=== PATIENT | male | born 1955 | race Caucasian/White ===

== ENCOUNTER 2017-09-24 21:22 | Inpatient (IN) ==
[2017-09-24] MEDS ORDERED: IOPAMIDOL 100 ML BOTTLE IV ONE (21:23)
[2017-09-24] MEDS ORDERED: 0.9 % SODIUM CHLORIDE 1,000 ML IV ONE (21:39)
[2017-09-24] MEDS ORDERED: 0.9 % SODIUM CHLORIDE 2,000 ML IV ONE (22:00)
[2017-09-24] MEDS ORDERED: KETOROLAC 30 MG/ML VIAL IV ONE (22:00)
[2017-09-24] MEDS ORDERED: ONDANSETRON 4 MG/2 ML VIAL IV ONE (22:00)
[2017-09-24 22:35] LABS: Basophils # (Auto) 0 K/mcL (0.0-0.3); Basophils % (Auto) 0.5 % (0.0-2.0); Eosinophils # (Auto) 0.1 K/mcL (0.0-0.7); Eosinophils % (Auto) 0.9 % (0.0-7.0); Granulocytes % (Auto) 76.7 % (38.0-78.0); Lymphocytes # (Auto) 1.6 K/mcL (1.5-4.8); Lymphocytes % (Auto) 16.3 % (15.5-49.0); Mean Cell Volume 85.6 fL (80.0-100.0); Mean Corpuscular HGB Conc 33.6 g/dL (31.0-36.0); Mean Corpuscular Hemoglobin 28.8 pg (26.0-34.0); Monocytes # (Auto) 0.6 K/mcL (0.1-0.9); Monocytes % (Auto) 5.6 % (1.0-12.0); Platelet Count 238 K/mcL (140-440); RBC 5.37 M/mcL (4.50-5.90); Red Cell Distribution Width 12.6 % (11.5-14.5)
[2017-09-24 22:52] LABS: Amylase 461 U/L (28-100)
[2017-09-24 22:52] LABS: ALT/SGPT 50 U/l (0-40); Albumin 4.4 gm/dL (3.2-5.2); Albumin/Globulin Ratio 1.8 (1.0-2.3); Alkaline Phosphatase 50 U/L (39-117); Blood Urea Nitrogen 23 mg/dl (8-23)
[2017-09-24 22:57] LABS: Lipase 1135 U/L (7-60)
[2017-09-24 23:09] LABS: Appearance,Urine CLEAR; Bacteria,Urine 0 /hpf (0); Bilirubin,Urine NEG (NEG); Color,Urine YELLOW; Glucose,Urine (UA) NEGATIVE (NEG); Leukocyte Esterase,Urine NEG /uL (NEG); Mucus,Urine MOD /hpf (0); Protein,Urine 100 mg/dL (NEG); Specific Gravity,Urine 1.032 (1.000-1.035); Urine Blood NEG mg/dL (<0.03); Urine RBC 1 /hpf (0-1); Urine Squamous Epithelial Cell < 1 /hpf (0-4); Urine WBC 4 /hpf (0-4); Urobilinogen,Urine NEG (NEG)
--- NOTE | 2017-09-25 00:10 | Emergency Department Note ---
Abdominal Pain HPI - General Chief Complaint: Abdominal Pain Stated Complaint: abdominal pain Time Seen by Provider: 09/24/17 21:41 Source: patient Mode of arrival: ambulatory Limitations: no limitations - History of Present Illness HPI Narrative: 62-year-old male comes in for stomachache since noon. Pain is worse at the left lower quadrant but also in the left upper quadrant. Increasing severity such that it hurts to take a deep breath. Not taking any medicine for this. No fever chills vomiting or diarrhea. But he does have some nausea and decreased appetite. He is urinating well. Normal bowel movements. He has not drank alcohol in over 2 years. - Related Data Home Medications Medication Instructions Recorded Confirmed Omeprazole [Prilosec] 20 mg PO DAILY 03/13/15 09/24/17 Allergies Allergy/AdvReac Type Severity Reaction Status Date / Time No Known Drug Allergies Allergy Verified 09/24/17 21:25 Review of Systems All systems ED: reviewed and negative except as stated. Abdominal Pain PMH - Past Medical History Attestation: Yes: The following information was validated with the patient. Medical history: Reports: GERD Surgical history ED: Reports: orthopedic, other (Foot surgery, cervical spine surgery, shoulder surgery) - Social History Smoking status: Former smoker Alcohol use: Reports: None Physical Exam No acute distress however holding very still so it does not move his belly. Normocephalic atraumatic. Conjunctive are clear sclerae nonicteric. No nasal discharge or congestion. Oropharynx is pink and moist. Posterior pharynx is clear. Neck is supple without lymphadenopathy or thyromegaly. Heart is regular rate and rhythm no murmur appreciated. Lungs are clear to auscultation bilaterally without wheezes rales rhonchi or respiratory distress. Abdomen is soft nondistended not rigid. However very tender but especially so on the left. Any movement exacerbates. Normoactive bowel sounds. No pedal edema. + 2 radial pulse. Alert and oriented Limitations: no limitations Course Vital Signs Temperature 96.7 F L 09/24/17 21:23 Pulse Rate 76 09/24/17 21:23 Respiratory Rate 22 09/24/17 21:23 Blood Pressure 136/89 09/24/17 21:23 Pulse Oximetry (%) 99 09/24/17 21:23 Temperature 99.6 F H 09/25/17 07:26 Pulse Rate 78 09/25/17 04:00 Respiratory Rate 16 09/25/17 07:26 Blood Pressure 122/75 09/25/17 07:26 Pulse Oximetry (%) 93 09/25/17 07:26 Abdominal Pain - Lab Data Lab results reviewed: Yes I reviewed the patient's lab results. Result diagrams: 09/24/17 21:51 09/24/17 21:51 Lab Results 09/24/17 09/24/17 09/24/17 Range/Units 21:51 21:51 22:00 WBC 9.9 (4.5-11.0) K/mcL RBC 5.37 (4.50-5.90) M/mcL Hgb 15.5 (13.5-16.5) g/dL Hct 46.0 (41.0-55.0) % POC Hct (41.0-55.0) % MCV 85.6 (80.0-100.0) fL MCH 28.8 (26.0-34.0) pg MCHC 33.6 (31.0-36.0) g/dL RDW 12.6 (11.5-14.5) % Plt Count 238 (140-440) K/mcL MPV 7.9 (7.4-10.4) fL Gran % 76.7 (38.0-78.0) % Lymph % (Auto) 16.3 (15.5-49.0) % [place] % (Auto) 5.6 (1.0-12.0) % Eos % (Auto) 0.9 (0.0-7.0) % Baso % (Auto) 0.5 (0.0-2.0) % Gran # 7.6 (1.8-8.0) K/mcL Lymph # (Auto) 1.6 (1.5-4.8) K/mcL [place] # (Auto) 0.6 (0.1-0.9) K/mcL Eos # (Auto) 0.1 (0.0-0.7) K/mcL Baso # (Auto) 0 (0.0-0.3) K/mcL VBG Lactic Acid (0.5-2.2) mmol/L POC Sodium (133-145) mmol/L Sodium 139 (133-145) mmol/L POC Potassium (3.3-5.1) mmol/L Potassium 3.9 (3.3-5.1) mmol/L POC Chloride (96-108) mmol/L Chloride 101 (96-108) mmol/L Carbon Dioxide 27 (22-30) mmol/L POC Total CO2 (22-30) mmol/L Anion Gap 11.0 (8-16) POC BUN (8-23) mg/dl BUN 23 (8-23) mg/dl Creatinine 1.0 (0.7-1.2) mg/dl POC Creatinine (0.7-1.2) mg/dl GFR Calculation 80 Glucose 105 (70-105) mg/dL POC Glucose (70-105) mg/dL Calcium 9.3 (8.6-10.4) mg/dl POC WB Ioniz Calcium (1.16-1.32) mmol/L Total Bilirubin 0.4 (0.0-1.0) mg/dL AST 28 (0-37) U/l ALT 50 H (0-40) U/l Alkaline Phosphatase 50 (39-117) U/L Total Protein 6.9 (5.9-8.4) gm/dL Albumin 4.4 (3.2-5.2) gm/dL Globulin 2.5 (2.2-3.7) gm/dL Albumin/Globulin Ratio 1.8 (1.0-2.3) Amylase (28-100) U/L Lipase 1135 H (7-60) U/L Urine Color Yellow Urine Appearance Clear Urine pH 5.0 (5.0-9.0) Ur Specific [place] 1.032 (1.000-1.035) Urine Protein 100 A (NEG) mg/dL Urine Glucose (UA) Negative (NEG) mg/dL Urine Ketones Neg (NEG) mg/dL Urine Occult Blood Neg (<0.03) mg/dL Urine Nitrate Neg (NEG) Urine Bilirubin Neg (NEG) mg/dL Urine Urobilinogen Neg (NEG) mg/dL Ur Leukocyte Esterase Neg (NEG) /uL Urine RBC 1 (0-1) /hpf Urine WBC 4 (0-4) /hpf Ur Squamous Epith Cells < 1 (0-4) /hpf Urine Bacteria 0 (0) /hpf Urine Mucus Mod (0) /hpf Ur Culture Indicated? No 06/22/18 06/22/18 Range/Units 22:11 22:11 WBC (4.5-11.0) K/mcL RBC (4.50-5.90) M/mcL Hgb (13.5-16.5) g/dL Hct (41.0-55.0) % POC Hct 40.0 L (41.0-55.0) % MCV (80.0-100.0) fL MCH (26.0-34.0) pg MCHC (31.0-36.0) g/dL RDW (11.5-14.5) % Plt Count (140-440) K/mcL MPV (7.4-10.4) fL Gran % (38.0-78.0) % Lymph % (Auto) (15.5-49.0) % [place] % (Auto) (1.0-12.0) % Eos % (Auto) (0.0-7.0) % Baso % (Auto) (0.0-2.0) % Gran # (1.8-8.0) K/mcL Lymph # (Auto) (1.5-4.8) K/mcL [place] # (Auto) (0.1-0.9) K/mcL Eos # (Auto) (0.0-0.7) K/mcL Baso # (Auto) (0.0-0.3) K/mcL VBG Lactic Acid 0.7 (0.5-2.2) mmol/L POC Sodium 142 (133-145) mmol/L Sodium (133-145) mmol/L POC Potassium 3.7 (3.3-5.1) mmol/L Potassium (3.3-5.1) mmol/L POC Chloride 103 (96-108) mmol/L Chloride (96-108) mmol/L Carbon Dioxide (22-30) mmol/L POC Total CO2 25 (22-30) mmol/L Anion Gap (8-16) POC BUN 23 (8-23) mg/dl BUN (8-23) mg/dl Creatinine (0.7-1.2) mg/dl POC Creatinine 1.0 (0.7-1.2) mg/dl GFR Calculation Glucose (70-105) mg/dL POC Glucose 100 (70-105) mg/dL Calcium (8.6-10.4) mg/dl POC WB Ioniz Calcium 1.13 L (1.16-1.32) mmol/L Total Bilirubin (0.0-1.0) mg/dL AST (0-37) U/l ALT (0-40) U/l Alkaline Phosphatase (39-117) U/L Total Protein (5.9-8.4) gm/dL Albumin (3.2-5.2) gm/dL Globulin (2.2-3.7) gm/dL Albumin/Globulin Ratio (1.0-2.3) Amylase 461 H (28-100) U/L Lipase (7-60) U/L Urine Color Urine Appearance Urine pH (5.0-9.0) Ur Specific [place] (1.000-1.035) Urine Protein (NEG) mg/dL Urine Glucose (UA) (NEG) mg/dL Urine Ketones (NEG) mg/dL Urine Occult Blood (<0.03) mg/dL Urine Nitrate (NEG) Urine Bilirubin (NEG) mg/dL Urine Urobilinogen (NEG) mg/dL Ur Leukocyte Esterase (NEG) /uL Urine RBC (0-1) /hpf Urine WBC (0-4) /hpf Ur Squamous Epith Cells (0-4) /hpf Urine Bacteria (0) /hpf Urine Mucus (0) /hpf Ur Culture Indicated? - Radiology Data Radiology results reviewed: Yes I reviewed the patient's radiology results. Initial [facility] CT scan read shows no evidence of pancreatitis but Dr. Dowell's over read shows mild peripancreatic fat stranding. No pseudocyst or abscess seen Disposition Pt seen by [facility] [employer]/PA only: No Clinical Impression: Pancreatitis Qualifiers: Chronicity: acute Pancreatitis type: unspecified pancreatitis type Acute pancreatitis complication: no infection or necrosis Qualified Code(s): K85.90 - Acute pancreatitis without necrosis or infection, unspecified Summary: Patient was given Toradol morphine Zofran and normal saline while working up belly pain Significant elevation in lipase/amylase consistent with pancreatitis on exam and history CT scan does not show any complications. Discussed case with Dr. Caceres who agreed to accept the patient for hospitalist service for acute pancreatitis unclear etiology. It is noted the patient no longer drinks alcohol and is not on any medicines that could cause pancreatitis. I wrote holding orders/ transition orders per Dr. Caceres's request Disposition: Xfer As Inpt ([facility]) Condition: Fair
[2017-09-25] MEDS ORDERED: ONDANSETRON 4 MG/2 ML VIAL IV PRN (00:12)
[2017-09-25] MEDS ORDERED: oxyCODONE/APAP 5/325MG TABLET PO PRN (00:12)
[2017-09-25] MEDS: 0.9 % SODIUM CHLORIDE 1,000 ML IV SCH ×5 (01:15→21:46)
[2017-09-25] MEDS: OMEPRAZOLE 20 MG CAPSULE PO SCH ×2 (07:32→18:04)
--- NOTE | 2017-09-25 07:55 | Cat Scan Report ---
CLINICAL INFORMATION: Left lower quadrant pain. Prior history of kidney disease COMPARISON: 06/06/2010 TECHNIQUE: Following enteric contrast, 80 cc of Isovue-300 were injected intravenously, and 60 seconds later, 0.625 mm helical slices were obtained from the mid heart through the subtrochanteric regions. Following reconstruction, 2.5 mm sagittal, coronal and axial reformatted images were processed and reviewed at bone, lung and soft tissue windows. Five minutes later, 0.625 mm helical slices were obtained from the mid heart through the kidneys and viewed at soft tissue windows.The exam was performed using radiation dose optimization techniques including, but not limited to, automated exposure control, adjustment of the mA and/or kV according to patient size and use of iterative reconstruction technique. FINDINGS: Lung bases show no abnormality - no effusion. The heart is normal in size configuration with small amounts of atherosclerotic calcific plaque seen within the coronary arteries. Images through the abdomen show moderate fatty change within the liver which show slight progression. No focal hepatic lesion. The gallbladder and bile ducts, spleen and aorta, including aortic branches, are normal in size, configuration and attenuation without focal lesion. Mild bulbous enlargement of the pancreatic tail is unchanged from the comparison study over seven years ago. Minor stranding in the peripancreatic fat is unchanged. There is no ascites on today's study. Both kidneys are normal and symmetric in size and position: The right is 12.1 x 4.4 cm and the left is 12 x 4.4 cm. Prominent lobulation in both kidneys seen - as before. There are no focal renal lesions. The upper collecting systems, ureters and urinary bladder are normal. Images through the pelvis show prostate and seminal vesicles to be unremarkable. There are multiple sigmoid diverticuli, but no CT evidence of diverticulitis. A 14 mm periampullary diverticula projects in the medial wall the descending small bowel - stable. The remaining small bowel, large bowel, appendix and stomach are normal. Bone windows show moderate sized regions of groundglass surrounded by well-defined sclerotic serpiginous borders in both superior femoral heads - larger on the left. These are new from the previous study and are highly suggestive of avascular necrosis. There is partial ankylosis across the anterior portion the SI joints which is stable radiographically. The remainder of the SI joints are unremarkable. No other osseous normality. IMPRESSION: 1. Sigmoid diverticulosis, but no CT evidence for diverticulitis. Mild diverticulitis may be CT occult. No other potential cause identified for left lower quadrant pain. 2. 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 Please correlate with chronic hip pain and also risk factors for avascular necrosis 3. Both kidneys, upper collecting systems, ureters and urinary bladder are unremarkable. Prior history of renal disease is acknowledged. 4. Mild bulbous configuration of the pancreatic tail is unchanged from the previous study and, thus, presumably either congenital or stigmata of remote inflammation. Minor stranding in the adjacent peripancreatic fat is supportive of remote inflammation 5. 14 mm periampullary diverticulum arising from the descending duodenum - stable and likely insignificant Interpreted and Authenticated by: Clay Dowell 09/25/17
[2017-09-25] MEDS ORDERED: MAGNESIUM SULFATE 2 GM/50 ML BAG IV PRN (09:00)
[2017-09-25] MEDS ORDERED: ACETAMINOPHEN 325 MG TABLET PO PRN (09:00)
--- NOTE | 2017-09-25 10:17 | Internal Med History&Physical ---
Medical - H&P: HPI Patient information: Note initiated : 09/25/17 at 10:15 am Service Date, if different from initiated Date: [] Patient: Jamal Riojas a 62 y/o M admitted on 09/25/17 for abdominal pain. Chief Complaint: [] Chief complaint: abdominal pain History of present illness: Mr. Riojas is a 62 year old M with a history of nephrotic syndrome in remission who presents with roughly 36 hours with onset of progressive abd discomfort. Patient's symptoms started late as a Dull ache. Over the ensuing 24 hours symptoms progressed to 8 out of 10-10 out of 10 sharp left upper abdominal pain with associated nausea but no vomiting. Patient denies associated fever diarrhea bloody stool. She denies any radiation to the shoulder or associated shortness of breath or chills or sweats. Subsequently came to the ER where initial workup was significant for elevated lipase over 1100 along with simple pancreatitis on abdominal CT. Patient denies recent [id number] herbal supplements or new medications. He denies alcoholism or prior similar episodes or history of gallstones. He was started on IV crystalloids and morphine, hospitalist service was consulted for admission. At the time of evaluation patient is in significant pain. He is able to provide answers to most of the questions. He denies weight loss including her swelling, prior abdominal surgeries. He denies chest pain shortness of breath. Review of systems 10 point review of systems performed and is negative except for what is discussed above Medical - H&P: PMH Medical history: Nephrotic syndrome in remission managed by Dr. Galvez nephrology Family history: reviewed and not pertinent Pertinent family history: Nonsignificant Social history: No history of smoking or alcoholism Patient has 3 kids-2 lives in [place] one lives locally is a nurse Full code Smoking status: Never smoker Drug use: none Medical - H&P: Meds Home Medications Medication Instructions Recorded Confirmed Type Omeprazole [Prilosec] 20 mg PO DAILY 03/13/15 09/24/17 History Allergies Allergy/AdvReac Type Severity Reaction Status Date / Time No Known Drug Allergies Allergy Verified 09/24/17 21:25 Medical - H&P: Exam - Constitutional Vitals: Temp Pulse Resp BP Pulse Ox 99.6 F H 78 16 122/75 93 09/25/17 07:26 09/25/17 04:00 09/25/17 07:26 09/25/17 07:26 09/25/17 07:26 General appearance: no acute distress Exam: Minimally distressed and anxious eye movements symmetric Oral cavity dry no eardischarge Head normocephalic Neck no lymphadenopathy S1 and S2 regular rhythm Diminished breath sounds bases Abdomen soft, hypoactive bowel sounds Lower extremity no cyanosis clubbing joint swelling or erythema Skin no suspicious lesion Psych anxious but cooperative Neuro nonfocal Medical - H&P: Reslt - Labs CBC & Chem 7: 09/27/17 03:59 09/27/17 03:59 Labs: Short CBC 09/24/17 Range/Units 21:51 WBC 9.9 (4.5-11.0) K/mcL Hgb 15.5 (13.5-16.5) g/dL Hct 46.0 (41.0-55.0) % Plt Count 238 (140-440) K/mcL BMP 09/24/17 21:51 Sodium 139 Potassium 3.9 Chloride 101 Carbon Dioxide 27 BUN 23 Creatinine 1.0 Glucose 105 Calcium 9.3 Liver Function 09/24/17 Range/Units 21:51 Total Bilirubin 0.4 (0.0-1.0) mg/dL AST 28 (0-37) U/l ALT 50 H (0-40) U/l Alkaline Phosphatase 50 (39-117) U/L Albumin 4.4 (3.2-5.2) gm/dL Urine 09/24/17 Range/Units 22:00 Urine Color Yellow Urine Appearance Clear Urine pH 5.0 (5.0-9.0) Ur Specific [place] 1.032 (1.000-1.035) Urine Protein 100 A (NEG) mg/dL Urine Glucose (UA) Negative (NEG) mg/dL Medical - H&P: A/P (1) Acute pancreatitis Current visit: Yes Status: Acute * Acute pancreatitis-lipase over 1100- continue conservative management per protocol with aggressive crystalloids NPO pain management. Low [place]'s and [place] score on admit. CT abdomen does not show evidence of gallstones or dilated common bile duct. LFTs within normal limits. Check triglycerides. We' ll trend CRP. Enteral nutrition in 48 hours * Full code * DVT prophylaxis heparin Plan * Conservative management crystalloids and antiemetics and analgesics and bowel rest * Inpatient admit. I anticipate a minimum of to midnight stay due to severe pancreatitis and continued inpatient management Medical - H&P: Qual - VTE Deep Vein Thrombosis/Pulmonary Embolism Present on Admission: No
[2017-09-25 10:38] LABS: C-Reactive Protein 3.4 mg/dl (0.0-0.8); Lipase 290 U/L (7-60)
[2017-09-25] MEDS: DOCUSATE SODIUM 100 MG CAPSULE PO SCH ×2 (12:18→20:03)
[2017-09-25] MEDS: MULTIVIT,THER IRON,CA,FA & MIN 1 TABLET PO SCH (12:19)
[2017-09-25] MEDS: HEPARIN 5,000 UNIT/ML VIAL SQ SCH ×2 (12:34→20:02)
[2017-09-25] MEDS: 0.9 % SODIUM CHLORIDE 10 ML SYRINGE IV SCH ×2 (14:33→20:03)
[2017-09-25] MEDS: SENNOSIDES/DOCUSATE SODIUM 1 TAB TABLET PO SCH (20:03)
[2017-09-26] MEDS: 0.9 % SODIUM CHLORIDE 1,000 ML IV SCH ×4 (03:01→19:16)
[2017-09-26] MEDS: 0.9 % SODIUM CHLORIDE 10 ML SYRINGE IV SCH ×3 (04:21→20:36)
[2017-09-26 04:49] LABS: Mean Corpuscular HGB Conc 34.3 g/dL (31.0-36.0); Mean Corpuscular Hemoglobin 30.2 pg (26.0-34.0); Platelet Count 150 K/mcL (140-440); RBC 4.18 M/mcL (4.50-5.90); Red Cell Distribution Width 13.5 % (11.5-14.5)
[2017-09-26 05:00] LABS: ALT/SGPT 31 U/l (0-40); Albumin/Globulin Ratio 1.6 (1.0-2.3); Alkaline Phosphatase 43 U/L (39-117); Bilirubin,Direct 0.2 mg/dL (0.0-0.3); Blood Urea Nitrogen 19 mg/dl (8-23); Gamma Glutamyl Transpeptidase 38 U/L (8-61); Uric Acid 6.1 mg/dL (2.5-8.0)
[2017-09-26 06:14] LABS: Lymphocytes % 18 % (15-49); Monocytes % (Manual) 4 % (1-12); Platelet Estimate NORMAL (NORMAL); RBC Morphology NORMAL (NORMAL); Segmented Neutrophils % 78 % (38-78)
[2017-09-26] MEDS: OMEPRAZOLE 20 MG CAPSULE PO SCH ×2 (06:52→17:18)
[2017-09-26] MEDS: DOCUSATE SODIUM 100 MG CAPSULE PO SCH ×2 (07:16→20:35)
[2017-09-26] MEDS: MULTIVIT,THER IRON,CA,FA & MIN 1 TABLET PO SCH (07:16)
[2017-09-26] MEDS: HEPARIN 5,000 UNIT/ML VIAL SQ SCH ×2 (08:14→20:36)
--- NOTE | 2017-09-26 12:13 | Internal Med Progress Note ---
Medical - PN: Subj Patient information: Note initiated : 09/26/17 at 12:02 pm Service Date, if different from initiated Date: [] Patient: Jamal Riojas a 62 y/o M admitted on 09/25/17 for abdominal pain. Chief Complaint: [] Interval history: Mr. Riojas is a 62 year old M with a history of nephrotic syndrome in remission who presents with roughly 36 hours with onset of progressive abd discomfort. Patient's symptoms started late . Dull ache. Over the ensuing 24 hours symptoms that progressed to 8 out of 10-10 out of 10 sharp left upper abdominal pain with associated nausea but no vomiting. Patient denies associated fever diarrhea bloody stool. She denies any radiation to the shoulder or associated shortness of breath or chills or sweats. Subsequently came to the ER where initial workup was significant for elevated lipase over 1100 along with pancreatitis on abdominal CT. Patient denies recent [id number] herbal supplements or new medications. He denies alcoholism or prior similar episodes or history of gallstones. He was started on IV crystalloids and morphine, hospitalist service was consulted for admission. At the time of evaluation patient is in significant pain. He is able to provide answers to most of the questions. He denies weight loss including her swelling, prior abdominal surgeries. He denies chest pain shortness of breath. 09/26. -Patient doing well. Requiring less opioids. Abdominal pain improved. Start oral clears. Lipase down to 300s. CRP 3.5. hemodynamic instability. On crystalloids. Triglycerides 120. Advance diet as tolerated. - Constitutional Vitals: Vital Signs Temp Pulse Resp BP Pulse Ox 98.2 F 75 12 117/71 94 09/26/17 08:00 09/26/17 08:00 09/26/17 08:00 09/26/17 08:00 09/26/17 08:00 Period Temp Pulse Resp BP Sys/Starkey Pulse Ox Last 24 Hr 98.2 F-99.8 F 75-79 12-16 103-117/65-71 93-94 Intake and Output 09/25/17 09/26/17 09/26/17 21:59 05:59 13:59 Intake Total 1882 / 1882 1000 / 1000 60 / 60 Output Total 600 / 600 225 / 225 Balance 1282 / 1282 775 / 775 60 / 60 Weight 167 lb Intake & Output: Intake & Output 09/25/17 09/26/17 09/26/17 21:59 05:59 13:59 Intake Total 1882 / 1882 1000 / 1000 60 / 60 Output Total 600 / 600 225 / 225 Balance 1282 / 1282 775 / 775 60 / 60 Weight 167 lb Intake: IV 188 / 1882 1000 / 1000 Sodium Chloride 0.9% 1,000 ml @ 188 / 1882 1000 / 1000 150 mls/hr IV .Q6H40M [facility] Rx#: [id number] Oral 0 / 0 60 60 Output: Void Amount 600 / 600 225 / 225 Other: Meal Breakfast Percent of Meal Consumed 0% General appearance: cooperative, no acute distress Exam: nondistended abdomen No anxiety Alert and oriented Nonlabored breathing Medical - PN: Obj Da - Labs CBC & Chem 7: 09/27/17 03:59 09/27/17 03:59 Labs: Abnormal Lab Results 09/26/17 09/26/17 09/25/17 03:48 03:48 09:38 RBC 4.18 L Hgb 12.6 L Hct 36.8 L POC Hct Calcium 7.8 L POC WB Ioniz Calcium Phosphorus 2.6 L ALT C-Reactive Protein 3.4 H Total Protein 4.9 L Albumin 3.0 L Globulin 1.9 L Amylase Lipase 290 H Urine Protein 09/24/17 09/24/17 09/24/17 22:11 22:00 21:51 RBC Hgb Hct POC Hct 40.0 L Calcium POC WB Ioniz Calcium 1.13 L Phosphorus ALT 50 H C-Reactive Protein Total Protein Albumin Globulin Amylase 461 H Lipase 1135 H Urine Protein 100 A Meds: Medications Acetaminophen (Tylenol) 650 mg PO Q4-6HP PRN PRN Reason: PAIN/FEVER > 101 Docusate Sodium (Colace) 100 mg PO BID [facility] Last Admin: 09/26/17 07:16 Dose: Not Given Heparin Sodium (Porcine) (Heparin) 5,000 unit SQ Q12 [facility] Last Admin: 09/26/17 08:14 Dose: 5,000 unit Sodium Chloride (Sodium Chloride 0.9%) 1,000 mls @ 150 mls/hr IV .Q6H40M [facility] Stop: 09/26/17 16:14 Last Admin: 09/26/17 09:00 Dose: Not Given Magnesium Sulfate (Magnesium Sulfate) 2 gm in 50 mls @ 50 mls/hr IV UD PRN PRN Reason: MG = or < 1.7 Last Admin: 09/26/17 08:13 Dose: 50 mls/hr Iron Carb/Multivit/Allen/Folic Acid (Multivitamin W/Minerals) 1 tab PO DAILY [facility] Last Admin: 09/26/17 07:16 Dose: Not Given Morphine Sulfate (Morphine) 2 mg IV Q2HP PRN PRN Reason: Pain Last Admin: 09/26/17 07:09 Dose: 2 mg Omeprazole (Prilosec) 20 mg PO BIDAC [facility] Last Admin: 09/26/17 06:52 Dose: 20 mg Ondansetron HCl (Zofran) 4 mg IV Q4HP PRN PRN Reason: Nausea And Vomiting Oxycodone/Acetaminophen (Percocet 5-325 Mg) 1 tab PO Q4HP PRN PRN Reason: PAIN LEVEL 3-6 Senna/Docusate Sodium (Senna Plus Tablet) 1 tab PO HS [facility] Last Admin: 09/25/17 20:03 Dose: Not Given Sodium Chloride (Saline Flush) 10 ml IV Q8 [facility] Last Admin: 09/26/17 04:21 Dose: Not Given Medical - PN: A/P - Time Spent With Patient Total time spent is greater than 50% in coordination of care (as documented) at patient's floor/unit and/or counseling patient: 15 - 24 minutes (1) Acute pancreatitis Status: Acute Assessment and plan: * Acute pancreatitis-lipase over 1100-clinical improvement noted. Downtrending lipase. Pain improved. Continue crystalloids. Start clears. No clear precipitant. Triglycerides normal. No history of alcohol intake. CT no evidence of CBD obstruction. Normal LFTs. * Full code * DVT prophylaxis heparin Plan * Start clears * Continue pain management Current Visit: Yes Medical - PN: Qual - VTE Deep Vein Thrombosis/Pulmonary Embolism Present on Admission: No
[2017-09-26] MEDS: SENNOSIDES/DOCUSATE SODIUM 1 TAB TABLET PO SCH (20:35)
[2017-09-27] MEDS: 0.9 % SODIUM CHLORIDE 10 ML SYRINGE IV SCH (04:15)
[2017-09-27 05:02] LABS: Mean Corpuscular Hemoglobin 29.9 pg (26.0-34.0); Platelet Count 152 K/mcL (140-440); RBC 3.86 M/mcL (4.50-5.90); Red Cell Distribution Width 13.4 % (11.5-14.5)
[2017-09-27 05:49] LABS: ALT/SGPT 25 U/l (0-40); Albumin/Globulin Ratio 1.7 (1.0-2.3); Alkaline Phosphatase 39 U/L (39-117); Bilirubin,Direct < 0.2 mg/dL (0.0-0.3); Blood Urea Nitrogen 12 mg/dl (8-23); Gamma Glutamyl Transpeptidase 36 U/L (8-61); Uric Acid 5.5 mg/dL (2.5-8.0)
[2017-09-27 05:51] LABS: Eosinophils % (Manual) 1 % (0-7); Lymphocytes % 22 % (15-49); Monocytes % (Manual) 5 % (1-12); Platelet Estimate NORMAL (NORMAL); RBC Morphology NORMAL (NORMAL); Segmented Neutrophils % 72 % (38-78)
[2017-09-27] MEDS: OMEPRAZOLE 20 MG CAPSULE PO SCH ×2 (07:02→16:30)
[2017-09-27] MEDS: HEPARIN 5,000 UNIT/ML VIAL SQ SCH (09:04)
[2017-09-27] MEDS: NEUTRA PHOS 1 PACKET PO SCH ×2 (09:05→16:30)
[2017-09-27] MEDS: DOCUSATE SODIUM 100 MG CAPSULE PO SCH (09:05)
[2017-09-27] MEDS: MULTIVIT,THER IRON,CA,FA & MIN 1 TABLET PO SCH (09:05)
--- NOTE | 2017-09-27 10:02 | Discharge Summary ---
Medical - DS: Prov Patient information: Note initiated : 09/27/17 at 9:59 am Service Date, if different from initiated Date: [] Patient: Jamal iRojas 62 y/o M admitted on 09/25/17 for abdominal pain. Chief Complaint: [] Date of admission: 09/25/17 00:40 Discharge date: 09/27/17 Primary care physician: Randolph Emmanuel Consults: 09/25/17 00:29 Consult to Physician [CONS] Stat Comment: Consulting Provider: Savage Caceres Reason For Exam: Physician to Consult Medical - DS: Meds - Discharge Medications Prescriptions: oxyCODONE/APAP [Percocet 5-325 mg] 1 tab PO Q4HP PRN #30 tab PRN Reason: Pain Level 3-6 Sennosides/Docusate Sodium [Senna Plus Tablet] 1 tab PO HS #30 tab Active and Home Medications: Home Medications Omeprazole [Prilosec] 20 mg PO DAILY 03/13/15 [History Confirmed 09/24/17 Last Taken 03/19/16] Sennosides/Docusate Sodium [Senna Plus Tablet] 1 tab PO HS #30 tab 09/27/17 [Rx Last Taken Unknown] oxyCODONE/APAP [Percocet 5-325 mg] 1 tab PO Q4HP PRN #30 tab 09/27/17 [Rx Last Taken Unknown] Medical - DS: Hosp Hospital course: Discharge diagnoses * Acute pancreatitis-lipase over 1100 on admission.-Clinical resolution noted. Managed conservatively. Resolved. No clear precipitant identified.. Triglycerides normal. CT no evidence of CBD obstruction. Normal LFTs. Discharging with advice to continue low-fat diet. Brief hospital course Mr. Riojas is a 62 year old M with a history of nephrotic syndrome in remission who presents with roughly 36 hours with onset of progressive abd discomfort. Patient's symptoms started late . Dull ache. Over the ensuing 24 hours symptoms that progressed to 8 out of 10-10 out of 10 sharp left upper abdominal pain with associated nausea but no vomiting. Patient denies associated fever diarrhea bloody stool. She denies any radiation to the shoulder or associated shortness of breath or chills or sweats. Subsequently came to the ER where initial workup was significant for elevated lipase over 1100 along with pancreatitis on abdominal CT. Patient denies recent [id number] herbal supplements or new medications. He denies alcoholism or prior similar episodes or history of gallstones. He was started on IV crystalloids and morphine, hospitalist service was consulted for admission. At the time of evaluation patient is in significant pain. He is able to provide answers to most of the questions. He denies weight loss including her swelling, prior abdominal surgeries. He denies chest pain shortness of breath. 09/26. -Patient doing well. Requiring less opioids. Abdominal pain improved. Start oral clears. Lipase down to 300s. CRP 3.5. hemodynamic instability. On crystalloids. Triglycerides 120. Advance diet as tolerated. 09/27-patient doing a lot better. No overnight fever chills abdominal pain nausea vomiting. Tolerating clears and advancing to soft diet. Requesting discharge. Labs and hemodynamic stable. Discharge instructions as below Discharge diagnosis: . - Time Spent with Patient Total time spent providing and/or coordinating discharge services: Medical - DS: Exam - Constitutional Vitals: Vital Signs Temp Pulse Resp BP Pulse Ox 09/27/17 06:23 97.6 F 16 119/75 94 09/27/17 04:00 97.9 F 70 16 128/75 93 09/26/17 23:58 98.5 F 71 18 130/79 95 09/26/17 20:00 99.1 F H 70 16 151/77 94 09/26/17 15:28 98.2 F 72 14 138/78 96 09/26/17 12:00 98.7 F 76 14 95 Intake and Output 09/26/17 09/27/17 09/27/17 21:59 05:59 13:59 Intake Total 450 / 450 1180 / 1180 30 / 30 Output Total 700 / 700 Balance -250 / -250 1180 / 1180 30 / 30 Intake: IV 1000 / 1000 Oral 450 / 450 180 / 180 30 / 30 Output: Void Amount 700 / 700 Other: Meal Jello Percent of Meal Consumed 100% Stool Size Moderate Stool Color Brown Stool Consistency Loose # Bowel Movements 2 Weight 166 lb Medical - DS: Data Labs on day of discharge: Labs from last 24 hours 09/27/17 09/27/17 03:59 03:59 WBC 7.0 RBC 3.86 L Hgb 11.6 L Hct 34.0 L MCV 88.0 MCH 29.9 MCHC 34.0 RDW 13.4 Plt Count 152 MPV 7.7 Total Counted 100 Seg Neutrophils % 72 Band Neutrophils % Not Reportable Lymphocytes % 22 Monocytes % (Manual) 5 Eosinophils % (Manual) 1 Platelet Estimate Normal RBC Morphology Normal Sodium 140 Potassium 4.0 Chloride 106 Carbon Dioxide 24 Anion Gap 10.0 BUN 12 Creatinine 0.9 GFR Calculation 91 Glucose 95 Uric Acid 5.5 Calcium 7.7 L Phosphorus 1.5 L Magnesium 1.9 Total Bilirubin 0.6 Direct Bilirubin < 0.2 GGT 36 AST 18 ALT 25 Alkaline Phosphatase 39 Lactate Dehydrogenase 139 Total Protein 4.8 L Albumin 3.0 L Globulin 1.8 L Albumin/Globulin Ratio 1.7 Triglycerides 121 Medical - DS: A/P - Patient/Caregiver Discharge Instructions Activity: increase activity as tolerated Diet: Low Fat Additional Instructions: Follow-up PCP in 5 days Low-fat diet Return to ER if worsening abdominal pain nausea vomiting fever chills Continue diet and activity as advised Discussed importance of medication adherence Please review medication list with patient prior to discharge Please schedule follow-up with PCP/Providers prior to discharge and provide printouts Portions of this chart may have been created with [employer] voice recognition software. Occasional wrong-word or ?sound-like? substitutions may have occurred due to the inherent limitations of voice recognition software. Please read the chart carefully and recognize, using context, where the substitutions have occurred. CC- PCP Prescriptions: oxyCODONE/APAP [Percocet 5-325 mg] 1 tab PO Q4HP PRN #30 tab PRN Reason: Pain Level 3-6 Sennosides/Docusate Sodium [Senna Plus Tablet] 1 tab PO HS #30 tab - Problem Maintenance (1) Acute pancreatitis Status: Acute - Follow up Plan Follow up with: Randolph Emmanuel MD [Primary Care Provider] - Disposition: Home, Self-Care Prognosis: Fair Rehab Potential: Fair I certify that the patient requires SNF services: No Overall status at discharge: patient is progressing back to baseline Medical - DS: Qual - VTE Deep Vein Thrombosis/Pulmonary Embolism Present on Admission: No
== END 2017-09-27 17:05 | disposition home or self-care (01) | DRG 440 ==
LOC: ED 21:22 → MEDSUR 09-25 00:40
PROVIDERS: ADMIT Internal Medicine; ATTEND Internal Medicine